=== PATIENT | female | born 2000 | race Caucasian/White ===

== ENCOUNTER 2021-09-18 01:43 | Inpatient (IN) ==
[2021-09-18] MEDS ORDERED: PENICILLIN G POTASSIUM 6 MU in DEXTROSE 5% 250 ML IV STA (02:54)
[2021-09-18] MEDS ORDERED: OXYTOCIN 30 UNITS/500 ML BAG IV PRN ×3 (02:54→08:39)
[2021-09-18] MEDS ORDERED: BETAMETH SOD PHOS/ACETATE IA 6 MG/ML IM STA (02:54)
--- NOTE | 2021-09-18 03:00 | Obstetrical Progress Note ---
Date of Service September 18, 2021 Assessment & Plan (1) premature rupture of membranes (PPROM) with unknown onset of labor: Plan: Pt presents with PPROM at 21:00 hrs on 09/17/21 Amnisure is +Ve FHR; CAT1 Ctx :minimal VE /-2 Plan BMTX Pitocin augmentation GBS culx done GBs prophylaxis ordered Results & Data ([facility]) Vital Signs (Past 12 Hours) Vital Signs Temp Pulse Resp BP 09/18/21 01:58 36.8 C 101 H 18 117/63 09/18/21 01:51 101 H 117/63
[2021-09-18] MEDS: LACTATED RINGER'S 1,000 ML IV PRN ×2 (03:33→07:01)
[2021-09-18 03:39] LABS: Hematocrit (blood only) 34.4 % (37-47); Hemoglobin 11.9 g/dL (12.0-16.0); Mean Corpuscular Hemoglobin 29.9 pg (25-34); Mean Corpuscular Hgb Conc 34.6 g/dL (32-36); Mean Corpuscular Volume 86.4 fL (80-100); Mean Platelet Volume 9.9 fL (7.4-10.4); Platelet Count 323 K/uL (130-400); RDW Coefficient of Variation 13.5 % (11.5-14.5); RDW Standard Deviation 42.6 fL (36.4-46.3); Red Blood Count 3.98 M/uL (4.2-5.4); White Blood Count 13.24 K/uL (4.8-10.8)
[2021-09-18] MEDS ORDERED: BUTORPHANOL TARTRATE 1 MG/ML VIAL IV ONE (04:52)
[2021-09-18] MEDS ORDERED: PENICILLIN G POTASSIUM 3 MU in DEXTROSE 5% 100 ML IV PRN (05:54)
[2021-09-18] MEDS ORDERED: BUPIVACAINE 0.25% 30 ML VIAL ONE (06:28)
[2021-09-18] MEDS ORDERED: fentaNYL citrate 100 MCG/2 ML VIAL ONE (06:28)
[2021-09-18] MEDS ORDERED: SODIUM CHLORIDE 0.9% INJ 10 ML VIAL ONE (06:28)
[2021-09-18] MEDS ORDERED: ePHEDrine sulfate 50 MG/ML AMP ONE (06:28)
[2021-09-18] MEDS ORDERED: fentaNYL 2MCG/ML ROPIVACAINE 1.25MG/ML 100 ML BAG EPI ONE (06:29)
--- NOTE | 2021-09-18 07:29 | Anesthesiology Consultation ---
Date of Service September 18, 2021 Assessment & Plan (1) Encounter for pre-operative examination: Chart Review Chart Review: Patient NOT seen in Pre Admission Testing and Acceptable Risk for Labor Epidural Consults Requested none ASA ASA2 Proposed Anesthesia Anesthesia Type: Labor Epidural Risk / Benefits Reviewed With: PT / POA / Parent / Guardian, Accepts Plan and Informed Consent Obtained History Height/Weight Height: 5 ft 6 in Weight: 107.501 kg Allergies Allergy/AdvReac Type Severity Reaction Status Date / Time No Known Allergies Allergy Verified 09/12/21 23:17 Medications Home Medications Medication Instructions Recorded Confirmed Last Taken ferrous sulfate 325 mg (65 mg 325 mg PO BID 09/12/21 09/18/21 09/17/21 iron) tablet (iron) vits no.124-ferrous fum 1 tab PO DAILY 09/12/21 09/18/21 09/17/21 27 mg iron-folic acid 800 mcg tablet ( Vitamin) Active Medications Generic Name Dose Route Start Last Admin Trade Name Freq PRN Reason Stop Dose Admin Lactated Ringer's 1,000 mls @ 125 mls/hr 09/18/21 02:54 09/18/21 07:01 Lr IV 09/20/21 02:53 125 mls/hr .Q8H PRN Administration L&D Protocol Protocol Oxytocin 30 units in 500 mls @ 6 mls/hr 09/18/21 04:22 09/18/21 05:45 Pitocin IV 09/20/21 04:21 0.36 units/hr .Q24H PRN 6 mls/hr Labor Induction/Augmentation Titration Protocol 0.36 UNITS/HR Past Medical History Medical History Asthma Exercise / Class Metabolic Activity II 4-5 Yardwork/Stairs/Walk up hill Negative for chest pain or shortness of breath. Past Surgical History Surgical History [place] teeth extracted 2017 Past Anesthesia History No Hx of Anesthesia Complications History of PONV No Hx of PONV Social History Smoking Status: Never smoker Hx Alcohol Use: No Hx Substance Use: No substance use type: does not use Review of Systems Patient denies history of abnormal bleeding or bleeding disorder. Patient denies active use of anticoagulants other than low dose aspirin. Patient denies active symptoms of GERD. Patient denies numbness, tingling or weakness in lower extremities. Physical Exam Vital Signs Last Vital Signs Temp 36.7 C 09/18/21 06:38 Pulse 76 09/18/21 06:41 Resp 20 09/18/21 06:38 BP 132/78 09/18/21 06:41 Constitutional not obese () ENMT Mouth: no TMJ abnormality and oral opening not small Thyromental Distance: > or= 3.5 Finger Breadths Mallampati Class: II Neck normal visual inspection; neck extension not limited Respiratory normal respiratory effort Cardiovascular Rate/Rhythm: regular rate Neurologic moves all extremities Psychiatric Orientation: alert and oriented x 3 Testing Laboratory Results 09/18/21 03:15
[2021-09-18] MEDS ORDERED: fentaNYL 2MCG/ML ROPIVACAINE 1.25MG/ML 100 ML BAG EPI PRN (08:11)
[2021-09-18] MEDS ORDERED: NALBUPHINE HCL INJ 10 MG/ML AMP IV PRN (08:11)
[2021-09-18] MEDS ORDERED: NALOXONE HCL 1 MG in SODIUM CHLORIDE 0.9% 1000ML 1,000 ML IV PRN (08:11)
[2021-09-18] MEDS ORDERED: ePHEDrine sulfate 50 MG/ML AMP IV PRN (08:11)
[2021-09-18] MEDS ORDERED: NALOXONE HCL 0.4 MG/1 ML VIAL/CARP IV PRN (08:11)
[2021-09-18] MEDS ORDERED: diphenhydrAMINE 50 MG/ML VIAL IV PRN (08:11)
[2021-09-18] MEDS ORDERED: BENZOCAINE 20% AER SPR 82.5 GM CAN EXT PRN (08:39)
[2021-09-18] MEDS ORDERED: DIPHTHERIA/TETANUS/PERTUSSIS 0.5 ML SYR/VIAL IM ONE (08:39)
[2021-09-18] MEDS ORDERED: HYDROCORTISONE ACETATE 25 MG SUPP PR PRN (08:39)
[2021-09-18] MEDS ORDERED: ACETAMINOPHEN 325 MG TAB PO PRN (08:39)
[2021-09-18] MEDS ORDERED: IBUPROFEN 600 MG TAB PO PRN (08:39)
[2021-09-18] MEDS ORDERED: bisacodyL 10 MG SUPP PR PRN (08:39)
--- NOTE | 2021-09-18 08:43 | Delivery Summary ---
Vaginal Delivery Summary Date of Service September 18, 2021 Vaginal Delivery Summary Delivery Note live male KELSEY over intact perineum with delayed cord clamping and nuchal cord x1 reduced at delivery. Delayed cord clamping and Apgars 8/9 weight pending. Cord blood obtained followed by spontaneous delivery of intact placenta. First dgree tear repaired with 3/0 Vicryl suture. EBL 200 ml. Final sponge, needle and instrument count are correct. Mom and baby stable.
--- NOTE | 2021-09-18 08:43 | Anesthesia Procedure Note ---
Date of Service September 18, 2021 Anesthesia Post Epidural Note Vital Signs Vital Signs: Temp Pulse Resp BP Pulse Ox 36.7 C 92 H 20 130/63 100 09/18/21 06:38 09/18/21 08:26 09/18/21 06:38 09/18/21 08:26 09/18/21 08:16 Notes Mental Status: alert / awake / arousable and participated in evaluation Nausea / Vomiting: adequately controlled Pain: adequately controlled Airway Patency, RR, SpO2: stable & adequate BP & HR: stable & adequate Hydration State: stable & adequate Neuraxial Anesthesia: was administered and sensory block is resolving Anesthetic Complications: no major complications apparent and Pt Satisfied with anesthetic care Epidural: Removed without complications and With tip intact Notes: Epidural site clean, dry and intact. No signs of edema, erythema or bruising at insertion site. Pt instructed to request anesthesia if she has residual lower extremity numbness or if she develops lower extremity pain or weakness, back pain or headache.
[2021-09-18] MEDS ORDERED: NON-FORMULARY MEDICATION (Ferrous Sulfate [Iron] 325 mg (65 mg iron) Tablet) PO SCH (09:00)
[2021-09-18] MEDS ORDERED: PRENATAL VITAMIN 1 TAB PO SCH (09:00)
[2021-09-18] MEDS: DOCUSATE SODIUM 100 MG CAP PO SCH (21:48)
[2021-09-19] MEDS ORDERED: BETAMETH SOD PHOS/ACETATE IA 6 MG/ML IM SCH (03:00)
[2021-09-19 06:51] LABS: Hematocrit (blood only) 32.4 % (37-47); Hemoglobin 10.8 g/dL (12.0-16.0); Mean Corpuscular Hemoglobin 29.2 pg (25-34); Mean Corpuscular Hgb Conc 33.3 g/dL (32-36); Mean Corpuscular Volume 87.6 fL (80-100); Mean Platelet Volume 9.9 fL (7.4-10.4); Platelet Count 295 K/uL (130-400); RDW Coefficient of Variation 13.8 % (11.5-14.5); RDW Standard Deviation 44.3 fL (36.4-46.3); White Blood Count 18.51 K/uL (4.8-10.8)
[2021-09-19] MEDS: FERROUS SULFATE 325 MG TAB PO SCH (07:51)
[2021-09-19] MEDS: DOCUSATE SODIUM 100 MG CAP PO SCH ×2 (07:51→20:30)
[2021-09-19] MEDS: PRENATAL VITAMIN 1 TAB PO SCH (07:51)
--- NOTE | 2021-09-19 08:28 | Obstetrical Progress Note ---
Date of Service September 19, 2021 Assessment & Plan Admission and Anticipated Discharge Date Admission Date: September 18, 2021 Subjective Patient is seen and examined. She feels well, no complaints. Ambulating without dizziness Voiding without difficulty Tolerating regular diet with out N&V Bleeding is minimal No fever/ chills/ CP/ SOB/ N&V/ Leg pain Breast feeding without problems Vital Signs Temp Pulse Pulse Resp BP Pulse Ox 09/19/21 03:10 37.0 C 89 18 116/77 97 09/19/21 00:40 36.9 C 84 20 120/79 98 Lab Results 09/18/21 09/18/21 09/19/21 Range/Units 02:40 03:15 06:34 WBC 13.24 H 18.51 H (4.8-10.8) K/uL RBC 3.98 L 3.70 L (4.2-5.4) M/uL Hgb 11.9 L 10.8 L (12.0-16.0) g/dL Hct 34.4 L 32.4 L (37-47) % MCV 86.4 87.6 (80-100) fL MCH 29.9 29.2 (25-34) pg MCHC 34.6 33.3 (32-36) g/dL RDW Std Deviation 42.6 44.3 (36.4-46.3) fL RDW Coeff of Jd 13.5 13.8 (11.5-14.5) % Plt Count 323 295 (130-400) K/uL MPV 9.9 9.9 (7.4-10.4) fL SARS-CoV-2, RNA, NAAT NEGATIVE (NEGATIVE) PE: General: Alert, orientedx3, NAD Abd: soft, NT, fundus firm, below Umbilicus Perineum intact, Lochia rubra minimal Ext; NT, no edema AP: 21 yo s/p , ppd# 1 VSS Afebrile doing well WBCC count elevated, afebrile, plan to repeat tomorrow am Continue routine care All questions were answered D/C home tomorrow Results & Data ([facility]) Vital Signs (Past 12 Hours) Vital Signs Temp Pulse Pulse Resp BP Pulse Ox 09/19/21 03:10 37.0 C 89 18 116/77 97 09/19/21 00:40 36.9 C 84 20 120/79 98
[2021-09-19] MEDS ORDERED: bisacodyL 5 MG TABEC PO SCH (20:00)
[2021-09-20 06:34] LABS: Basophils # (auto) 0.05 K/uL (0-0.2); Basophils % (auto) 0.3 %; Eosinophils % (auto) 3.8 %; Hematocrit (blood only) 33.6 % (37-47); Hemoglobin 11.1 g/dL (12.0-16.0); Immature Granulocytes # (auto) 0.09 K/uL (0.00-0.02); Immature Granulocytes % (auto) 0.6 %; Lymphocytes # (auto) 4.11 K/uL (1.2-3.4); Mean Corpuscular Hemoglobin 29.4 pg (25-34); Mean Corpuscular Volume 88.9 fL (80-100); Mean Platelet Volume 9.9 fL (7.4-10.4); Monocytes # (auto) 1.59 K/uL (0.11-0.59); Monocytes % (auto) 10.1 %; Neutrophils # (auto) 9.35 K/uL (1.4-6.5); Neutrophils % (auto) 59.2 %; Platelet Count 311 K/uL (130-400); RDW Coefficient of Variation 13.9 % (11.5-14.5); RDW Standard Deviation 45.3 fL (36.4-46.3); Red Blood Count 3.78 M/uL (4.2-5.4); White Blood Count 15.79 K/uL (4.8-10.8)
[2021-09-20] MEDS: PRENATAL VITAMIN 1 TAB PO SCH (07:49)
[2021-09-20] MEDS: DOCUSATE SODIUM 100 MG CAP PO SCH (07:49)
[2021-09-20] MEDS: FERROUS SULFATE 325 MG TAB PO SCH (07:49)
--- NOTE | 2021-09-20 10:05 | Obstetrical Progress Note ---
Date of Service September 20, 2021 Assessment & Plan (1) Normal course: PPD #1 Pt doing well d/c home with instructions Results & Data ([facility]) Vital Signs (Past 12 Hours) Vital Signs Temp Pulse Resp BP Pulse Ox 09/19/21 23:11 36.6 C 87 16 123/84 98
== END 2021-09-20 14:05 | disposition home or self-care (01) | DRG 807 ==
LOC: OPB 01:43 → 4S1 01:44 → 4E2 11:37

== ENCOUNTER 2023-04-26 02:30 | Inpatient (IN) ==
[2023-04-26] MEDS ORDERED: LIDOCAINE 1% LOCAL 20 ML VIAL INFIL PRN (03:07)
[2023-04-26] MEDS ORDERED: OXYTOCIN 30 UNITS/NSS 30 UNITS/500 ML BAG IV PRN ×3 (03:07→10:57)
[2023-04-26] MEDS: LACTATED RINGER'S 1,000 ML IV PRN ×2 (03:30→05:11)
[2023-04-26] MEDS ORDERED: ePHEDrine sulfate 50 MG/ML AMP ONE (04:03)
[2023-04-26] MEDS ORDERED: SODIUM CHLORIDE 0.9% PF INJ 10 ML VIAL ONE (04:03)
[2023-04-26] MEDS ORDERED: BUPIVACAINE 0.25% PF 30 ML VIAL ONE (04:03)
[2023-04-26] MEDS ORDERED: LIDOCAINE 2%/EPINEPHRINE 1:200,000 20 ML PF ONE (04:03)
[2023-04-26] MEDS ORDERED: fentaNYL citrate PF 100 MCG/2 ML VIAL ONE (04:03)
[2023-04-26] MEDS ORDERED: fentANYL 2 MCG/ML BUPIVacaine 0.125%-NSS 100ML BAG ONE (04:03)
[2023-04-26 04:06] LABS: Hemoglobin 11.5 g/dl (12.0-16.0); Mean Corpuscular Hemoglobin 28.5 pg (25.0-34.0); Mean Corpuscular Hgb Conc 32.9 g/dL (32.0-36.0); Mean Corpuscular Volume 86.8 fL (80.0-100.0); Platelet Count 210 K/uL (130-400); RDW Coefficient of Variation 13.7 % (11.5-14.5); RDW Standard Deviation 42.5 fL (36.4-46.3); Red Blood Count 4.03 M/uL (4.20-5.40); White Blood Count 10.78 K/ul (4.8-10.8)
--- NOTE | 2023-04-26 04:15 | Anesthesiology Consultation ---
Date of Service April 26, 2023 Assessment & Plan Chart Review Chart Review: Patient NOT seen in Pre Admission Testing and Acceptable Risk for Labor Epidural Consults Requested none ASA ASA2 Proposed Anesthesia Anesthesia Type: Labor Epidural Risk / Benefits Reviewed With: PT / POA / Parent / Guardian, Accepts Plan and Informed Consent Obtained History Height/Weight Height: 5 ft 7 in Weight: 114.759 kg Allergies Allergy/AdvReac Type Severity Reaction Status Date / Time No Known Allergies Allergy Verified 04/26/23 03:30 Medications Home Medications Medication Instructions Recorded Confirmed Last Taken ferrous sulfate 325 mg (65 mg 325 mg PO BID 09/12/21 04/26/23 09/17/21 iron) tablet (iron) vits no.124-ferrous fum 1 tab PO DAILY 09/12/21 04/26/23 04/25/23 27 mg iron-folic acid 800 mcg tablet ( Vitamin) Active Medications Generic Name Dose Route Start Last Admin Trade Name Freq PRN Reason Stop Dose Admin Lactated Ringer's 1,000 mls @ 125 mls/hr 04/26/23 03:07 04/26/23 04:22 Lr IV 04/28/23 03:06 125 mls/hr .Q8H PRN Infusion L&D Protocol Protocol NPO Date Last Intake of Fluids: 04/26/23 Time Last Intake of Fluids: 01:00 Date Last Intake of Solids: 04/26/23 Time Last Intake of Solids: 01:00 Past Medical History Medical History Asthma Exercise / Class Metabolic Activity 1 > 8 Run/Swim/Ski/Tennis Past Surgical History Surgical History [place] teeth extracted 2017 Past Anesthesia History No Hx of Anesthesia Complications and No Family Hx of Anesthesia Complications History of PONV No Hx of PONV and No Hx of Motion Sickness Social History Smoking Status: Current every day smoker Hx Alcohol Use: No Hx Substance Use: No substance use type: does not use Review of Systems ROS Unobtainable: All systems reviewed & are unremarkable except as noted in HPI & below Physical Exam Vital Signs Last Vital Signs Temp 36.8 C 04/26/23 02:38 Pulse 110 H 04/26/23 02:40 Resp 18 04/26/23 02:38 BP 131/81 04/26/23 02:40 Constitutional no acute distress ENMT Mouth: no TMJ abnormality Thyromental Distance: > or= 3.5 Finger Breadths Mallampati Class: II Neck normal visual inspection and trachea midline; neck extension not limited Respiratory normal respiratory effort Auscultation: lungs clear to auscultation bilaterally Cardiovascular Rate/Rhythm: regular rate and regular rhythm Heart Sounds: no murmur Musculoskeletal Spine: normal cervical ROM Extremities: full ROM of extremities Neurologic moves all extremities Psychiatric Orientation: alert and oriented x 3 Testing Laboratory Results 04/26/23 03:35
[2023-04-26] MEDS ORDERED: diphenhydrAMINE 50 MG/ML VIAL IV PRN (04:34)
[2023-04-26] MEDS ORDERED: NALOXONE HCL 1 MG in SODIUM CHLORIDE 0.9% 1,000 ML IV PRN (04:34)
[2023-04-26] MEDS ORDERED: fentANYL 2 MCG/ML BUPIVacaine 0.125%-NSS 100ML BAG EPI PRN (04:34)
[2023-04-26] MEDS ORDERED: SODIUM CHLORIDE 0.9% PF INJ 10 ML VIAL EPI STA (04:34)
[2023-04-26] MEDS ORDERED: NALBUPHINE HCL 5 MG in SYRINGE 0 ML IV PRN (04:34)
[2023-04-26] MEDS ORDERED: LIDOCAINE 2%/EPINEPHRINE 1:200,000 20 ML PF EPI STA (04:34)
[2023-04-26] MEDS ORDERED: SODIUM CHLORIDE 0.9% PF INJ 10 ML VIAL EPI PRN (04:34)
[2023-04-26] MEDS ORDERED: BUPIVACAINE 0.25% PF 30 ML VIAL EPI STA (04:34)
[2023-04-26] MEDS ORDERED: ROPIVACAINE 0.5% PF 5 MG/ML 20 ML VIAL EPI PRN (04:34)
[2023-04-26] MEDS ORDERED: NALOXONE HCL 0.4 MG/1 ML VIAL/CARP IV PRN (04:34)
[2023-04-26] MEDS ORDERED: BUPIVACAINE 0.25% PF 30 ML VIAL EPI PRN (04:34)
[2023-04-26] MEDS ORDERED: fentaNYL citrate PF 100 MCG/2 ML VIAL EPI STA (04:34)
[2023-04-26] MEDS ORDERED: ePHEDrine sulfate 50 MG/ML AMP IV PRN (04:34)
[2023-04-26] MEDS ORDERED: LIDOCAINE 2% MPF LOCAL 5 ML VIAL EPI PRN (04:34)
[2023-04-26] MEDS ORDERED: fentaNYL citrate PF 100 MCG/2 ML VIAL EPI PRN (04:34)
--- NOTE | 2023-04-26 07:41 | Obstetrical Progress Note ---
Date of Service April 26, 2023 Assessment & Plan (1) PROM (premature rupture of membranes): Plan: PROM at term- 01;06hrs - Clear fluid FHR; CAT1 VE /-1 Cephalic Ctx moderate Pitocin augmentation ordered Admission and Anticipated Discharge Date Admission Date: April 26, 2023 Results & Data Vital Signs (Past 12 Hours) Vital Signs Temp Pulse Resp BP Pulse Ox 04/26/23 07:38 95 H 94 04/26/23 07:37 101 H 96 04/26/23 07:32 116 H 97 04/26/23 07:27 105 H 96 04/26/23 07:26 106 H 125/68 04/26/23 07:22 105 H 96 04/26/23 07:17 116 H 95 04/26/23 07:13 115 H 134/57 L 04/26/23 07:12 128 H 95 04/26/23 07:09 37.1 C 18 04/26/23 07:08 120 H 94 04/26/23 07:07 113 H 97 04/26/23 07:02 120 H 97 04/26/23 07:01 123 H 94 04/26/23 06:57 132 H 97 04/26/23 06:55 118 H 111/58 L 04/26/23 06:52 125 H 95 04/26/23 06:50 124 H 94 04/26/23 06:47 116 H 96 04/26/23 06:44 140 H 94 04/26/23 06:42 116 H 107/60 97 04/26/23 06:37 123 H 96 04/26/23 06:32 114 H 97 04/26/23 06:27 117 H 95 04/26/23 06:26 102 H 94 04/26/23 06:25 109 H 97/51 L 04/26/23 06:22 106 H 93 04/26/23 06:20 116 H 94 04/26/23 06:17 115 H 94 04/26/23 06:12 110 H 94 04/26/23 06:10 127 H 97/51 L 04/26/23 06:07 93 H 95 04/26/23 06:02 107 H 98 04/26/23 05:57 89 93 04/26/23 05:55 120 H 102/51 L 04/26/23 05:54 110 H 94 04/26/23 05:52 95 H 95 04/26/23 05:49 88 93 04/26/23 05:47 113 H 94 04/26/23 05:44 121 H 93 04/26/23 05:42 91 H 93 04/26/23 05:40 85 106/55 L 04/26/23 05:37 117 H 95 04/26/23 05:32 116 H 97 04/26/23 05:28 18 04/26/23 05:28 18 04/26/23 05:27 83 107/52 L 97 04/26/23 05:22 101 H 95 04/26/23 05:17 88 96 04/26/23 05:12 103 H 96 04/26/23 05:10 93 H 105/56 L 04/26/23 05:08 102 H 104/54 L 94 04/26/23 05:07 100 H 96 04/26/23 05:06 96 H 105/55 L 04/26/23 05:04 95 H 97/51 L 04/26/23 05:02 107 H 98/53 L 95 04/26/23 05:01 18 04/26/23 05:01 18 04/26/23 05:00 106 H 105/56 L 04/26/23 04:58 90 106/55 L 04/26/23 04:57 96 H 97 04/26/23 04:56 111 H 104/52 L 04/26/23 04:54 109 H 112/55 L 04/26/23 04:52 124 H 99 04/26/23 04:51 96 H 116/56 L 04/26/23 04:47 122 H 97 04/26/23 04:45 37.4 C 04/26/23 04:45 120 H 130/55 L 04/26/23 04:44 113 H 94/51 L 04/26/23 04:42 111 H 04/26/23 04:42 100 H 95/50 L 96 04/26/23 04:41 97 H 100/53 L 04/26/23 04:40 113 H 98/55 L 04/26/23 04:39 115 H 91/55 L 04/26/23 04:37 111 H 04/26/23 04:37 106 H 87/52 L 97 04/26/23 04:35 121 H 90/51 L 04/26/23 04:33 102 H 94/53 L 04/26/23 04:32 95 04/26/23 04:32 113 H 04/26/23 04:32 107 H 91/55 L 04/26/23 04:31 18 04/26/23 04:31 18 04/26/23 04:30 102 H 100/57 L 04/26/23 04:27 100 H 120/74 96 04/26/23 04:22 108 H 97 04/26/23 04:17 119 H 98 04/26/23 02:40 110 H 131/81 04/26/23 02:38 36.8 C 18
[2023-04-26] MEDS ORDERED: ACETAMINOPHEN 325 MG TAB PO PRN (10:57)
[2023-04-26] MEDS ORDERED: BENZOCAINE 20% SPRY 85 APPLN/85 GM CAN EXT PRN (10:57)
[2023-04-26] MEDS ORDERED: HYDROCORTISONE ACETATE 25 MG SUPP PR PRN (10:57)
[2023-04-26] MEDS ORDERED: bisacodyL 10 MG SUPP PR PRN (10:57)
[2023-04-26] MEDS ORDERED: DIPHTHERIA/TETANUS/PERTUSSIS Vaccine (Tdap, Age 7+yrs) 0.5mL SYR/VL IM ONE (10:57)
--- NOTE | 2023-04-26 11:00 | Delivery Summary ---
Vaginal Delivery Summary Date of Service April 26, 2023 Vaginal Delivery Summary live male KELSEY with nuchal cord x1 reduced at delivery and delayed cord clamping. Apgars 8/9 weight pending. Cord blood obtained followed by spontaneous delivery of intact placenta. No tears. EBL 100 ml. Strait cath of bladder done with 100 ml clear urine. Final sponge and instrument count are correct. Mom and baby stable.
--- NOTE | 2023-04-26 11:36 | Anesthesia Procedure Note ---
Date of Service April 26, 2023 Anesthesia Post Epidural Note Vital Signs Vital Signs: Temp Pulse Resp BP Pulse Ox 98.8 F 86 18 105/50 L 81 L 04/26/23 07:09 04/26/23 11:25 04/26/23 10:30 04/26/23 11:25 04/26/23 10:47 Notes Mental Status: alert / awake / arousable and participated in evaluation Nausea / Vomiting: adequately controlled Pain: adequately controlled Airway Patency, RR, SpO2: stable & adequate BP & HR: stable & adequate Hydration State: stable & adequate Neuraxial Anesthesia: was administered and sensory block is resolving Anesthetic Complications: no major complications apparent and Pt Satisfied with anesthetic care Epidural: Removed without complications and With tip intact
[2023-04-26] MEDS: DOCUSATE SODIUM 100 MG CAP PO SCH (20:03)
[2023-04-26] MEDS ORDERED: NON-FORMULARY MEDICATION (Ferrous Sulfate [Iron] 325 mg (65 mg iron) Tablet) PO SCH (21:00)
[2023-04-27] MEDS: IBUPROFEN 600 MG TAB PO PRN ×2 (00:20→09:48)
[2023-04-27 07:04] LABS: Hematocrit (blood only) 35.3 % (37.0-47.0); Hemoglobin 11.5 g/dl (12.0-16.0); Mean Corpuscular Hemoglobin 28.5 pg (25.0-34.0); Mean Corpuscular Hgb Conc 32.6 g/dL (32.0-36.0); Mean Corpuscular Volume 87.4 fL (80.0-100.0); Mean Platelet Volume 10.7 fL (9.4-12.4); Platelet Count 197 K/uL (130-400); RDW Coefficient of Variation 13.8 % (11.5-14.5); RDW Standard Deviation 43.6 fL (36.4-46.3); Red Blood Count 4.04 M/uL (4.20-5.40)
[2023-04-27] MEDS ORDERED: FERROUS SULFATE 325 MG TAB PO SCH (08:00)
[2023-04-27] MEDS ORDERED: PRENATAL VITAMIN 1 TAB PO SCH ×2 (08:00→09:00)
--- NOTE | 2023-04-27 09:31 | Obstetrical Progress Note ---
Date of Service April 27, 2023 Subjective Ambulation: ambulating normally Voiding: no voiding problems Passing Gas:: Yes Diet Tolerance:: regular diet Lochia:: Small Feeding Type:: breast feeding Current Pain Level(1-10): 0 doing well. wants to go home today. Physical Exam Constitutional WD/WN, vitals as above Gastrointestinal (Abdomen) Inspection/Auscultation: abdomen normal to inspection fundus firm and below U. abdomen soft and non-tender. Musculoskeletal Extremities: extremities normal to inspection Skin no rashes, warm and dry Neurologic patellar DTR's 2+ bilat, sensation intact Psychiatric A+Ox3, euthymic affect Results & Data Vital Signs (Past 12 Hours) Vital Signs Temp Pulse Resp BP 04/27/23 04:30 36.5 C 74 18 107/70 04/27/23 00:25 36.6 C 86 18 121/79 Laboratory Results Laboratory Results - last 72 hr 04/26/23 04/26/23 04/26/23 03:35 03:35 03:35 WBC 10.78 RBC 4.03 L Hgb 11.5 L Hct 35.0 L MCV 86.8 MCH 28.5 MCHC 32.9 RDW Std Deviation 42.5 RDW Coeff of Jd 13.7 Plt Count 210 MPV 11.0 Blood Type A Positive Cancelled Antibody Screen NEGATIVE Cancelled 04/27/23 06:16 WBC 11.40 H RBC 4.04 L Hgb 11.5 L Hct 35.3 L MCV 87.4 MCH 28.5 MCHC 32.6 RDW Std Deviation 43.6 RDW Coeff of Jd 13.8 Plt Count 197 MPV 10.7 Blood Type Antibody Screen
[2023-04-27] MEDS: DOCUSATE SODIUM 100 MG CAP PO SCH (09:48)
[2023-04-27] MEDS ORDERED: bisacodyL 5 MG TABEC PO SCH (20:00)
--- NOTE | 2023-04-29 04:19 | Coding Query ---
CODING QUERY To promote full compliance with coding requirements relating to patient care, provider participation is requested in all cases of program management analyst uncertainty. Please assist us with the question(s) below: Coding Question(s): Please indicate weeks of gestation. 38.4 weeks Physician's Response(s): Thank you Jennifer Kearney Principal Diagnosis: "that condition established after study, to be chiefly responsible for occasioning the admission of the patient to the hospital for care." Co-Existing Principal Diagnosis: "when two or more diagnoses equally meet the criteria for principal diagnosis as determined by the circumstances of admission, diagnostic work up, and/or therapy provided, and the Alphabetic Index, Tabular List, or another coding guideline does not provide sequencing direction, any one of the diagnoses may be sequenced first." "When the physician has documented what appears to be a current diagnosis in the body of the record, but has not included the diagnosis in the final diagnostic statement, the physician should be asked whether the diagnosis should be added." ([facility] 2 QTR90. p3-4) JAKE
== END 2023-04-27 12:40 | disposition home or self-care (01) | DRG 807 ==
LOC: OPB 02:30 → 4S1 02:33 → 4E2 13:08